=== PATIENT | male | born 1990 | race Two or more races ===

== ENCOUNTER 2024-11-01 10:26 | Emergency (ER) | payer OTHER, SELFPAY ==
--- NOTE | 2024-11-01 10:56 | ED.SKININJ ---
HPI-Injury
<Marian Chacon REGISTERED PHARMACIST - Last Filed: 11/01/24 10:58>
General
Chief Complaint: Back Pain
Time Seen by Provider: 11/01/24 11:18
<Jayson Min PA-C - Last Filed: 11/01/24 15:09>
General
Source: patient
Exam Limitations: none
History of Present Illness-Injury
Initial Injury comments:
34-year-old male presents complaining of severe low back pain. This started yesterday and worsened today. He is now at the point where he is unable to ambulate secondary to his pain. The pain is along the lower back in the area of his tailbone.
He denies perianal anesthesia. He denies weakness to the legs. He typically does deal with sciatic discomfort of his right leg this is different. He got done lifting weights yesterday and developed pain. He was okay at that time but the pain
progressively got worse. No chest pain or shortness of breath. No fever. No bowel or bladder dysfunction. No other complaints
ED Provider Triage
<Marian Chacon NP - Last Filed: 11/01/24 10:58>
-
Patient seen by provider in Triage?: Seen in Triage
Attestation: A medical screening examination has been initiated by a qualified medical provider. Based on the assessment performed at this time, it has been determined that an emergent medical condition may exist and the patient has been informed
that further medical evaluation and possible additional diagnostic testing may be needed.
HPI: 34-year-old male here for pain across his lower back. Pain started yesterday midday after working out.
History of chronic bilateral sciatica.
GENERAL: Alert , in no apparent distress
EYE: No visual abnormalities.
NECK: Trachea midline
ENT: No visible abnormalities.
LUNGS: No acute respiratory distress
NEUROLOGICAL: Alert and oriented
SKIN: Skin intact. No visible changes.
MUSCULOSKELETAL: Moving extremities normally
PSYCH: Normal and appropriate interaction.
This is a medical evaluation conducted in person to initiate diagnostic evaluation and provide initial therapeutics. Please see further documentation by the treating clinician.
Phy Exam
<Jayson Min PA-C - Last Filed: 11/01/24 15:09>
Physical Exam
Physical Exam:
General: Uncomfortable appearing male no acute respiratory distress
HEENT: Normocephalic atraumatic neck is supple
Heart: Regular rate and rhythm no murmurs
Lungs: Clear no wheeze
Musculoskeletal exam: The patient is slightly tender over the lower aspect of the lumbar spine there is spasm noted about the lumbar spine
Neurologic exam: Alert and oriented good sensation to the lower extremities. Bilateral patellar reflexes 2+. Good strength to the lower extremities
Skin is warm no rash
Course
<Marian Chacon REGISTERED PHARMACIST - Last Filed: 11/01/24 10:58>
Orders/Labs/Results
Orders:
Orders
11/01/24 11:27
Dexamethasone Sod Phosphate [Decadron] 10 mg IV NOW STA
Ketorolac [Toradol] 15 mg IV NOW STA
diazePAM [Valium Injection] 5 mg IV NOW STA
CR Lumbar Spine 2 Or 3 Views Urgent
Comment:
Reason For Exam: back pain
11/01/24 12:05
Complete Blood Count/With Diff Urgent
Comprehensive Metabolic Panel Urgent
11/01/24 13:32
HYDROmorphone [Dilaudid] 0.5 mg IV NOW STA
Abnormal Lab Results
11/01/24
12:05
WBC 12.5 H 10^3/uL
(4.8-10.8)
RBC 4.47 L 10^6/uL
(4.70-6.10)
MCH 32.0 H pg
(27.0-31.0)
RDW 11.4 L %
(11.5-14.5)
MPV 11.0 H fL
(7.4-10.4)
Abs Immat Gran (auto) 0.1 H 10^3/uL
(0-0.05)
Absolute Neuts (auto) 10.5 H 10^3/uL
(1.4-6.5)
Immature Gran % 0.7 H %
(0-0.5)
Neutrophils % 84.1 H %
(42.2-75.2)
Lymphocytes % 10.5 L %
(20.5-51.1)
11/01/24 12:05
11/01/24 12:05
Vital Signs
Initial and Last Documented VS:
Initial Vital Signs
Temp Pulse Resp BP Pulse Ox
98.3 F 88 18 149/80 99
11/01/24 10:57 11/01/24 10:57 11/01/24 10:57 11/01/24 10:57 11/01/24 10:57
Last Documented Vital Signs
Temp Pulse Resp BP Pulse Ox
98.3 F 65 18 133/91 97
11/01/24 10:57 11/01/24 13:42 11/01/24 13:42 11/01/24 13:42 11/01/24 13:42
<Jayson Min PA-C - Last Filed: 11/01/24 15:09>
Orders/Labs/Results
Orders:
Orders
11/01/24 11:27
Dexamethasone Sod Phosphate [Decadron] 10 mg IV NOW STA
Ketorolac [Toradol] 15 mg IV NOW STA
diazePAM [Valium Injection] 5 mg IV NOW STA
CR Lumbar Spine 2 Or 3 Views Urgent
Comment:
Reason For Exam: back pain
11/01/24 12:05
Complete Blood Count/With Diff Urgent
Comprehensive Metabolic Panel Urgent
11/01/24 13:32
HYDROmorphone [Dilaudid] 0.5 mg IV NOW STA
Abnormal Lab Results
11/01/24
12:05
WBC 12.5 H 10^3/uL
(4.8-10.8)
RBC 4.47 L 10^6/uL
(4.70-6.10)
MCH 32.0 H pg
(27.0-31.0)
RDW 11.4 L %
(11.5-14.5)
MPV 11.0 H fL
(7.4-10.4)
Abs Immat Gran (auto) 0.1 H 10^3/uL
(0-0.05)
Absolute Neuts (auto) 10.5 H 10^3/uL
(1.4-6.5)
Immature Gran % 0.7 H %
(0-0.5)
Neutrophils % 84.1 H %
(42.2-75.2)
Lymphocytes % 10.5 L %
(20.5-51.1)
11/01/24 12:05
11/01/24 12:05
Vital Signs
Initial and Last Documented VS:
Initial Vital Signs
Temp Pulse Resp BP Pulse Ox
98.3 F 88 18 149/80 99
11/01/24 10:57 11/01/24 10:57 11/01/24 10:57 11/01/24 10:57 11/01/24 10:57
Last Documented Vital Signs
Temp Pulse Resp BP Pulse Ox
98.3 F 65 18 133/91 97
11/01/24 10:57 11/01/24 13:42 11/01/24 13:42 11/01/24 13:42 11/01/24 13:42
Melidalt;Jayson Min PA-C - Last Filed: 11/01/24 15:09>
MDM/Problems Addressed
Differential Diagnosis Includes:
Low back pain. Consider lumbar strain versus herniated disc versus degenerative disc disease. No red flags to suggest cauda equina no fever to suggest infectious source. Patient unable to ambulate secondary to back pain. Will try to treat
symptoms. Valium Decadron Toradol ordered. X-rays pending
<Jayson Min PA-C - Last Filed: 11/01/24 15:09>
*Critical Care Note
Total Time (30-74mins, 75-104mins- exclusive of procedures): Not Applicable
<Jayson Min PA-C - Last Filed: 11/01/24 15:09>
Update Note
Update Note:
Patient feeling slightly improved after medications. X-ray demonstrates straightening of the normal curvature of the lumbar spine. He is ambulatory. No red flags of cauda equina. Will prescribe medicine for him to take at home and recommend
follow-up.
ED Attending Note
<Marian Chacon REGISTERED PHARMACIST - Last Filed: 11/01/24 10:58>
-
Portions of this chart may have been created with voice recognition software.� Occasional wrong word or��sound alike� substitutions may have occurred due to the inherent limitations of voice recognition software.
Discharge Plan
Departure
Patient Disposition: Home (Routine Discharge)
Date of Disposition: 11/01/24
Time of Disposition: 14:49
Patient with high blood pressure during this ER visit?: No
Discharge Problem:
Lumbar spine pain
Instructions: Low Back Pain (DC)
Prescriptions:
New
prednisone 10 mg Tablet
See Rx Instructions .ROUTE .COMPLEX Qty: 30 0RF
Rx Instructions:
Take By Mouth:
40 mg daily x3 days, 30 mg daily x3 days,
20 mg daily x3 days, 10 mg daily x3 days.
diazepam [Valium] 5 mg tablet
5 mg PO TID PRN (Reason: muscle spasm) Qty: 10 0RF
hydrocodone-acetaminophen 5-325 mg tablet
1 tab PO Q8H PRN (Reason: Pain) Qty: 7 0RF
Referrals:
Ozzy Sargent MD [Active] -
UNKNOWN - PT DOES,NOT KNOW [Family Provider] -
Stand Alone Forms: Return to Work
Activity Restrictions/Additional Instructions:
Use medications as needed for pain/spasm. Take prednisone as directed. Return if needed otherwise follow up with back pain specialist.
Interventions
Interventions:
*Risk Screen - Suicide Last Done: 11/01/24 12:07
*General Assessment Last Done: 11/01/24 10:57
*Neglect/Abuse Screening Last Done: 11/01/24 12:07
ED- Fall Risk Assessment Last Done: 11/01/24 11:23
*ED COVID-19 Vaccine History Last Done: 11/01/24 11:23
ED-Musculoskeletal Assessment Last Done: 11/01/24 11:23
Discharge Date and Time
Print Language: [place]
[2024-11-01 10:57] VITALS: BP 149/80
[2024-11-01 11:23] VITALS: BMI 27.7
[2024-11-01] MEDS: TORADOL 15 MG IV (11:48)
[2024-11-01] MEDS: DECADRON 10 MG IV (11:49)
[2024-11-01] MEDS: VALIUM INJECTION 5 MG IV (11:49)
[2024-11-01 12:21] LABS: % Basophils 0.6 % (0-2); % Eosinophils 0.3 % (0-6); % Immature Granulocytes 0.7 % (0-0.5); % Lymphocytes 10.5 % (20.5-51.1); % Monocytes 3.8 % (1.7-9.3); % Neutrophils 84.1 % (42.2-75.2); Absolute Basophils 0.1 10^3/uL (0-0.2); Absolute Immature Granulocytes 0.1 10^3/uL (0-0.05); Absolute Lymphocytes 1.3 10^3/uL (1.2-3.4); Absolute Monocytes 0.5 10^3/uL (0.1-0.6); Absolute Neutrophils 10.5 10^3/uL (1.4-6.5); Hematocrit 39.8 % (39.0-52.0); Hemoglobin 14.3 g/dL (13.0-18.0); Mean Corp Hgb Conc. 35.9 g/dL (33.0-37.0); Nucleated Red Blood Cells % 0 % (-); Platelet Count 237 10^3/uL (130-400); Red Blood Cell Count 4.47 10^6/uL (4.70-6.10); Red Cell Dist. Width 11.4 % (11.5-14.5); White Blood Cell Count 12.5 10^3/uL (4.8-10.8)
[2024-11-01 12:35] LABS: ALT (SGPT) 26 U/L (0-50); AST (SGOT) 27 U/L (17-59); Albumin 4.8 g/dl (3.5-5.0); Alkaline Phosphatase 40 U/L (38-126); Blood Urea Nitrogen 14 mg/dl (9-20); Calcium 9.6 mg/dl (8.4-10.2); Carbon Dioxide 26 mmol/L (22-30); Chloride 103 mmol/L (98-107); Estimated Creatinine Clearance 117 ml/min; Glucose 94 mg/dl (70-99); Sodium 139 mmol/L (135-145); Total Bilirubin 0.9 mg/dl (0.2-1.3); Total Protein 7.2 g/dl (6.3-8.2); eGFR > 60.00
[2024-11-01] MEDS: DILAUDID 0.5 MG IV (13:35)
[2024-11-01 13:42] VITALS: BP 133/91
--- NOTE | 2024-11-01 15:40 | EDRN ---
Reviewed discharge instructions with patient. Verbalized understanding. Ambulated to the lobby with steady gait.
[2024-11-01 16:03] VITALS: BP 128/75
== END 2024-11-01 15:40 | disposition home or self-care (01) ==
LOC: EMR 10:26
PROVIDERS: Physician Assistant; EMERGENCY PHYSICIAN Emergency Medicine
DX: M54.50 Low back pain, unspecified (principal)
CPT/HCPCS: 99283; 96374; 96375; 72100; 80053; 85025